=== PATIENT | male | born 1960 ===

== ENCOUNTER 2018-01-11 01:55 | Emergency (ER) | payer MEDICAID ==
--- NOTE | 2018-01-11 02:26 | C.PDOC ---
History Of Present Illness 57 year old male presents to the ED c/o lower back pain for the past 3 days. Patient states he was pushing his food cart after which he got his lower back pain, right side greater than left. Patient denies trauma, fall, weakness, numbness, saddle anesthesia, bowel incontinence. Time Seen by Provider: 01/11/18 02:16 Chief Complaint (Nursing): Back Pain History Per: Patient History/Exam Limitations: no limitations Onset/Duration Of Symptoms: Days Current Symptoms Are (Timing): Still Present Quality Of Discomfort: "Pain" Associated Symptoms: None Recent travel outside of the [place]: No Additional History Per: Patient Past Medical History Reviewed: Historical Data, Nursing Documentation, Vital Signs Vital Signs: Last Vital Signs Temp 98 F 01/11/18 03:12 Pulse 82 01/11/18 03:12 Resp 20 01/11/18 03:12 BP 132/82 01/11/18 03:12 Pulse Ox 98 01/11/18 03:12 - Medical History PMH: No Chronic Diseases Surgical History: No Surg Hx Family History: States: Unknown Family Hx - Social History Hx Alcohol Use: No Hx Substance Use: No - Immunization History Hx Tetanus Toxoid Vaccination: No Hx Influenza Vaccination: No Hx Pneumococcal Vaccination: No Review Of Systems Constitutional: Negative for: Fever, Chills Cardiovascular: Negative for: Chest Pain Respiratory: Negative for: Shortness of Breath Gastrointestinal: Negative for: Abdominal Pain, Diarrhea Genitourinary: Negative for: Dysuria Musculoskeletal: Positive for: Back Pain Skin: Negative for: Rash Neurological: Negative for: Weakness, Numbness Physical Exam - Physical Exam Appears: Non-toxic, No Acute Distress Skin: Normal Color, Warm, Dry Head: Atraumatic, Normacephalic Neck: Normal ROM, No Midline Cervical Tenderness, Supple Cardiovascular: Rhythm Regular, No Murmur Respiratory: Normal Breath Sounds, No Rales, No Rhonchi, No Wheezing Gastrointestinal/Abdominal: Soft, No Tenderness, No Guarding, No Rebound Back: No Vertebral Tenderness, Paraspinal Tenderness (right), Other (right paralumbar spasm palpated) Extremity: Normal ROM, No Pedal Edema, No Calf Tenderness Pulses: Left Dorsalis Pedis: Normal, Right Dorsalis Pedis: Normal Neurological/Psych: Oriented x3, Normal Speech, Normal Cognition, Normal Motor, Normal Sensation Gait: Steady ED Course And Treatment O2 Sat by Pulse Oximetry: 96 (On RA) Pulse Ox Interpretation: Normal Medical Decision Making Medical Decision Making: Plan: * Flexeril 10 mg PO * Toradol 30 mg IM 252 am pt feeling better after medications. will d/c with nsaids and flexeril. pt advised no more heavy lifting or pushing. and advised to f/u pmd. Disposition Counseled Patient/Family Regarding: Diagnosis, Need For Followup, Rx Given - Disposition Referrals: [facility] [Outside] Disposition: HOME/ ROUTINE Disposition Time: 02:54 Condition: IMPROVED Additional Instructions: Please do not push your food cart. Take ibuprofen (with food) every 6 hours. Take muscle relaxant up to 3 times a day if not working; only at bedtime if working, since it makes you sleepy. Please follow up in medical clinic for a general checkup and follow up exam. Prescriptions: Cyclobenzaprine [Cyclobenzaprine HCl] 10 mg PO Q8 #9 tab Ibuprofen [Motrin] 600 mg PO TID #30 tab Instructions: Low Back Pain (DC), Muscle Spasms (DC) Forms: [employer] ([place]ish), General Discharge Instructions - Clinical Impression Clinical Impression: Lumbar sprain, Muscle spasm of back - PA / CALCIMINER / Resident Statement MD/DO has reviewed & agrees with the documentation as recorded. - Scribe Statement The provider has reviewed the documentation as recorded by the Scribe Chava Rosales All medical record entries made by the Scribe were at my direction and personally dictated by me. I have reviewed the chart and agree that the record accurately reflects my personal performance of the history, physical exam, medical decision making, and the department course for this patient. I have also personally directed, reviewed, and agree with the discharge instructions and disposition.
[2018-01-11 02:36] VITALS: RESP 20
[2018-01-11 03:15] VITALS: BP 132/82; PULSE 82; TEMP 98
[2018-01-11 06:58] VITALS: O2SAT 96
== END 2018-01-11 03:12 | disposition home or self-care (01) ==
LOC: C.ER 01:55
DX: S33.5XXA Sprain of ligaments of lumbar spine, initial encounter (principal); X50.9XXA Other and unspecified overexertion or strenuous movements or postures, initial encounter
CPT/HCPCS: 96372; 99283; J1885